=== PATIENT | male | born 1955 | race African-American/Black ===

== ENCOUNTER 2018-05-10 19:51 | Emergency (ER) | payer SELFPAY ==
[~2018-05-10] VITALS: Ht 188 cm; Wt 93.2 kg
[2018-05-10 20:11] VITALS: BP 138/92
== END 2018-05-11 | disposition left against medical advice (07) ==
LOC: ER 19:51
DX: Z53.21 Procedure and treatment not carried out due to patient leaving prior to being seen by health care provider (principal)